=== PATIENT | female | born 1935 | race Caucasian/White ===

== ENCOUNTER → 2018-10-12 | Outpatient (CLI) | payer MEDICARE, BC ==
[~2018-10-12] MED LIST: ASPIRIN81 MG PO; HUSBAND TO BRING; IMDUR30 MG PO; LISINOPRIL5 MG PO; OMEPRAZOLE40 MG PO; PLAVIX75 MG PO; SIMVASTATIN20 MG PO; SUCRALFATE1 GM PO; ZEBETA10 M1 PO
--- NOTE | 2018-10-12 12:22 | Diagnostic Imaging Report ---
TECHNIQUE: Magnetic resonance imaging of the LEFT KNEE was performed WITHOUT injected contrast. HISTORY: Left knee pain COMPARISON: None available. FINDINGS: LIGAMENTS AND TENDONS: ACL: Intact PCL: Intact Collateral ligaments: Intact Iliotibial band: Unremarkable Popliteal tendon: Intact Extensor mechanism: Intact JOINT: Menisci: Medial: Horizontal tear involving the body and posterior horn. Flipped meniscal tissue into the meniscotibial recess. Lateral: Complex degenerative signal of the anterior horn with adjacent ganglion. Articular Cartilage: Medial Compartment: Partial-thickness cartilage loss Lateral Compartment: Partial-thickness cartilage loss Patellofemoral Compartment: Partial-thickness cartilage loss Joint Fluid: Moderate joint effusion. Hoffman's cyst. BONE: No focal or infiltrative bone marrow replacing abnormality. No acute fracture. SOFT TISSUES: Otherwise, unremarkable. IMPRESSION: Medial meniscus horizontal tear with small flipped fragment into the meniscotibial recess. Joint effusion and Hoffman's cyst. Signed by: Dr. Joe Barrow M.D. on 10/12/2018 12:18 PM
== END ==
LOC: MRI 10:32
PROVIDERS: ATTEND Specialist
DX: S83.242A Other tear of medial meniscus, current injury, left knee, initial encounter (principal)

== ENCOUNTER 2020-10-02 05:05 | Inpatient (IN) | payer MEDICARE, BC ==
[~2020-10-02] VITALS: Ht 157.5 cm; Wt 52.6 kg
[2020-10-02] MEDS ORDERED: DILTIAZEM HCL 5 MG/ML 5 ML VIAL IV STA (05:13)
[2020-10-02] MEDS ORDERED: LACTATED RINGER'S 500 ML IV ONE (05:15)
[2020-10-02 05:34] LABS: BASOPHILS # (AUTO) 0.1 (0.0-0.1); BASOPHILS % 0.9 % (0.0-1.0); EOSINOPHILS # (AUTO) 0.2 (0.0-0.4); HEMATOCRIT 39.7 % (34.2-44.1); HEMOGLOBIN 12.6 g/dL (12.0-16.0); LYMPHOCYTES # (AUTO) 3.3 (1.0-3.2); LYMPHOCYTES % 40.6 % (18.0-39.1); MEAN CORPUSCULAR HEMOGLOBIN 29.2 pg (28-32); MEAN CORPUSCULAR HGB CONC 31.7 g/dL (31-35); MEAN CORPUSCULAR VOLUME 91.9 fL (81-99); MONOCYTES # (AUTO) 0.8 (0.2-0.8); MONOCYTES % 9.9 % (4.4-11.3); NEUTROPHILS # (AUTO) 3.8 (2.1-6.9); NEUTROPHILS % 46.2 % (38.7-80.0); PLATELET COUNT 244 x10e3/uL (140-360); RED BLOOD COUNT 4.32 x10e6/uL (3.6-5.1); RED CELL DISTRIBUTION WIDTH 13.2 % (11.7-14.4)
[2020-10-02] MEDS ORDERED: LACTATED RINGER'S 1,000 ML ONE (05:39)
[2020-10-02 05:43] LABS: INR 0.96; PROTHROMBIN TIME 13.3 seconds (11.9-14.5)
[2020-10-02 05:51] LABS: ALBUMIN 4.1 g/dL (3.5-5.0); ALBUMIN/GLOBULIN RATIO 1.3 (0.8-2.0); ANION GAP 12.9 mmol/L (8-16); CREATININE, SERUM 1.19 mg/dL (0.57-1.11); POTASSIUM 3.9 mmol/L (3.5-5.1)
[2020-10-02 05:59] LABS: CREATINE KINASE MB 1.6 ng/mL (0-5.0)
[2020-10-02 07:58] VITALS: BP 176/65
[2020-10-02 08:24] VITALS: BP 176/65
[2020-10-02] MEDS: ASPIRIN 81 MG CHEW TAB PO SCH (10:55)
[2020-10-02] MEDS: LISINOPRIL 2.5 MG TAB PO SCH (10:56)
[2020-10-02] MEDS: CLOPIDOGREL BISULFATE 75 MG TAB PO SCH (10:56)
[2020-10-02] MEDS: BISOPROLOL FUMARATE 10 MG TAB PO SCH (11:02)
[2020-10-02 12:17] VITALS: BP 170/69
[2020-10-02] MEDS ORDERED: ISOSORBIDE MONO30 MG PO (14:27)
[2020-10-02 16:12] VITALS: BP 171/60
[2020-10-02 20:00] VITALS: BP 151/64
[2020-10-02 21:00] VITALS: BP 151/64
[2020-10-02] MEDS ORDERED: SIMVASTATIN 20 MG TAB PO SCH (21:00)
[2020-10-03] VITALS: BP 167/65
[2020-10-03 04:00] VITALS: BP 136/61
[2020-10-03 06:35] LABS: BASOPHILS # (AUTO) 0.1 (0.0-0.1); BASOPHILS % 0.7 % (0.0-1.0); EOSINOPHILS # (AUTO) 0.1 (0.0-0.4); EOSINOPHILS % 1.7 % (0.0-6.0); HEMATOCRIT 36.4 % (34.2-44.1); HEMOGLOBIN 11.4 g/dL (12.0-16.0); LYMPHOCYTES # (AUTO) 2.3 (1.0-3.2); MEAN CORPUSCULAR HEMOGLOBIN 28.5 pg (28-32); MEAN CORPUSCULAR HGB CONC 31.3 g/dL (31-35); MONOCYTES # (AUTO) 0.8 (0.2-0.8); NEUTROPHILS # (AUTO) 4.3 (2.1-6.9); NEUTROPHILS % 57.1 % (38.7-80.0); PLATELET COUNT 217 x10e3/uL (140-360); RED CELL DISTRIBUTION WIDTH 13.2 % (11.7-14.4)
[2020-10-03 06:41] LABS: ALBUMIN 3.5 g/dL (3.5-5.0); ALBUMIN/GLOBULIN RATIO 1.3 (0.8-2.0); ANION GAP 13.6 mmol/L (8-16); CALCIUM 9.5 mg/dL (8.4-10.2); CHOL/HDL RATIO 3.5 (3.0-3.6); CREATININE, SERUM 1.05 mg/dL (0.57-1.11); POTASSIUM 3.6 mmol/L (3.5-5.1)
[2020-10-03 08:16] VITALS: BP 152/63
[2020-10-03 08:21] VITALS: BP 152/63
[2020-10-03] MEDS: ASPIRIN 81 MG CHEW TAB PO SCH (08:47)
[2020-10-03] MEDS: CLOPIDOGREL BISULFATE 75 MG TAB PO SCH (08:48)
[2020-10-03] MEDS: LISINOPRIL 2.5 MG TAB PO SCH (08:48)
[2020-10-03] MEDS: BISOPROLOL FUMARATE 10 MG TAB PO SCH (08:49)
[2020-10-03] MEDS ORDERED: ISOSORBIDE MONONITRATE 30 MG TAB CR PO SCH (09:00)
[2020-10-03 12:07] VITALS: BP 131/59
[2020-10-03] MEDS ORDERED: NITROSTAT0.4 MG SL (12:09)
== END 2020-10-03 12:40 | disposition home or self-care (01) | DRG 313 ==
LOC: ER 05:13 → ERHOLD 07:09 → MED/SURG2 08:01
PROVIDERS: ADMIT Internal Medicine Cardiovascular Disease; ATTEND Internal Medicine Cardiovascular Disease
DX: R07.9 Chest pain, unspecified (principal); I25.10 Atherosclerotic heart disease of native coronary artery without angina pectoris; Z95.5 Presence of coronary angioplasty implant and graft; I10 Essential (primary) hypertension; E78.5 Hyperlipidemia, unspecified; I25.2 Old myocardial infarction; I48.91 Unspecified atrial fibrillation; Z20.828 Contact with and (suspected) exposure to other viral communicable diseases
CPT/HCPCS: 36415; 71045; 80053; 80061; 82550; 82553; 83735; 84443; 84484; 85025; 85610; 93005; 93306; 99284; J7120; J7121; U0002

== ENCOUNTER 2020-10-26 09:56 | Inpatient (IN) | payer MEDICARE, BC ==
[~2020-10-26] VITALS: Ht 157.5 cm; Wt 52.6 kg
[~2020-10-26 09:56] MED LIST changes: +ISOSORBIDE MONO30 MG PO; +NITROSTAT0.4 MG SL
[2020-10-26] MEDS ORDERED: ASPIRIN 81 MG CHEW TAB PO ONE ×2 (10:15→11:15)
[2020-10-26 10:32] LABS: BASOPHILS % 0.5 % (0.0-1.0); EOSINOPHILS % 0.1 % (0.0-6.0); HEMATOCRIT 37.2 % (34.2-44.1); HEMOGLOBIN 11.7 g/dL (12.0-16.0); MEAN CORPUSCULAR HEMOGLOBIN 29.1 pg (28-32); MEAN CORPUSCULAR HGB CONC 31.5 g/dL (31-35); MEAN CORPUSCULAR VOLUME 92.5 fL (81-99); MONOCYTES # (AUTO) 0.5 (0.2-0.8); MONOCYTES % 6.1 % (4.4-11.3); NEUTROPHILS # (AUTO) 6.1 (2.1-6.9); NEUTROPHILS % 79.7 % (38.7-80.0); PLATELET COUNT 225 x10e3/uL (140-360); RED BLOOD COUNT 4.02 x10e6/uL (3.6-5.1); RED CELL DISTRIBUTION WIDTH 13.5 % (11.7-14.4)
[2020-10-26] MEDS ORDERED: MORPHINE SULFATE INJ 2 MG/ML SYR ONE (10:34)
[2020-10-26] MEDS ORDERED: MORPHINE SULFATE INJ 2 MG/ML SYR IV STA (10:34)
[2020-10-26] MEDS ORDERED: ONDANSETRON HCL INJ 2MG/ML 2ML 2 MG/ML VIAL IV STA (10:34)
[2020-10-26] MEDS ORDERED: ONDANSETRON HCL INJ 2MG/ML 2ML 2 MG/ML VIAL ONE (10:35)
[2020-10-26] MEDS ORDERED: MORPHINE SULFATE INJ 2 MG/ML SYR IV ONE (10:45)
[2020-10-26 11:00] LABS: ALBUMIN 4.2 g/dL (3.5-5.0); ALBUMIN/GLOBULIN RATIO 1.3 (0.8-2.0); ANION GAP 17.4 mmol/L (8-16); CALCIUM 9.8 mg/dL (8.4-10.2); CREATININE, SERUM 1.33 mg/dL (0.57-1.11); POTASSIUM 4.4 mmol/L (3.5-5.1)
[2020-10-26] MEDS ORDERED: ONDANSETRON HCL INJ 2MG/ML 2ML 2 MG/ML VIAL IV ONE (11:00)
[2020-10-26 11:06] LABS: CREATINE KINASE MB 5.1 ng/mL (0-5.0)
[2020-10-26] MEDS ORDERED: MORPHINE SULFATE INJ 2 MG/ML SYR IV PRN (11:15)
[2020-10-26] MEDS ORDERED: ONDANSETRON HCL INJ 2MG/ML 2ML 2 MG/ML VIAL IV PRN (11:15)
[2020-10-26] MEDS: MORPHINE SULFATE INJ 4 MG/ML INJ 1ML IV PRN (13:52)
[2020-10-26] MEDS: ENOXAPARIN INJ 80 MG/0.8 ML SYR SC SCH ×2 (13:53→21:23)
[2020-10-26 15:15] VITALS: BP 127/68
[2020-10-26 15:16] VITALS: BP 127/68
[2020-10-26] MEDS ORDERED: ALPRAZOLAM 0.5 MG TAB PO PRN (16:00)
[2020-10-26] MEDS ORDERED: SODIUM CHLORIDE FLUSH 10 ML SYR INJ PRN (16:00)
[2020-10-26] MEDS: ASPIRIN 81 MG CHEW TAB PO SCH (16:00)
[2020-10-26] MEDS ORDERED: ACETAMINOPHEN 325 MG TAB PO PRN (16:15)
[2020-10-26] MEDS ORDERED: NITROGLYCERIN 2% OINT 1 GM PKT TOP SCH (16:15)
[2020-10-26] MEDS ORDERED: NITROGLYCERIN 0.4 MG SUBL SL PRN (16:15)
[2020-10-26] MEDS: LISINOPRIL 2.5 MG TAB PO SCH (16:30)
[2020-10-26] MEDS: METOPROLOL TARTRATE 25 MG TAB PO SCH (16:30)
[2020-10-26] MEDS: D5.45%NS/KCL 20MEQ 1,000 ML IV SCH (16:30)
[2020-10-26] MEDS: NITROGLYCERIN 2% OINT 1 GM PKT TOP SCH (19:00)
[2020-10-26 19:55] LABS: CREATINE KINASE MB 13.9 ng/mL (0-5.0)
[2020-10-26 20:25] VITALS: BP 125/75
[2020-10-26 20:34] VITALS: BP 113/67
[2020-10-26] MEDS ORDERED: ZOLPIDEM TARTRATE 5 MG TAB PO PRN (21:00)
[2020-10-27] VITALS (8 sets, daily range): BP systolic 103–128; BP diastolic 50–80
[2020-10-27] MEDS: NITROGLYCERIN 2% OINT 1 GM PKT TOP SCH ×4 (00:50→17:13)
[2020-10-27] MEDS: D5.45%NS/KCL 20MEQ 1,000 ML IV SCH (00:51)
[2020-10-27] MEDS: MORPHINE SULFATE INJ 4 MG/ML INJ 1ML IV PRN (01:33)
[2020-10-27] MEDS: METOPROLOL TARTRATE 25 MG TAB PO SCH ×2 (04:00→17:14)
[2020-10-27] MEDS ORDERED: FUROSEMIDE INJ 10 MG/ML 4 ML VIAL ONE (04:43)
[2020-10-27] MEDS ORDERED: FUROSEMIDE INJ 10 MG/ML 4 ML VIAL IV ONE (04:45)
[2020-10-27 06:36] LABS: INR 0.98; PROTHROMBIN TIME 13.5 seconds (11.9-14.5)
[2020-10-27 06:37] LABS: PARTIAL THROMBOPLASTIN TIME 27.9 seconds (23.8-35.5)
[2020-10-27 06:52] LABS: CREATINE KINASE MB 13.6 ng/mL (0-5.0)
[2020-10-27 07:08] LABS: ALBUMIN 3.4 g/dL (3.5-5.0); ANION GAP 14.4 mmol/L (8-16); CALCIUM 9.3 mg/dL (8.4-10.2); CREATININE, SERUM 1.13 mg/dL (0.57-1.11); POTASSIUM 4.4 mmol/L (3.5-5.1)
[2020-10-27 07:20] LABS: CHOL/HDL RATIO 3.2 (3.0-3.6)
[2020-10-27 08:17] LABS: BASOPHILS # (AUTO) 0.1 (0.0-0.1); BASOPHILS % 0.3 % (0.0-1.0); EOSINOPHILS # (AUTO) 0.1 (0.0-0.4); EOSINOPHILS % 0.6 % (0.0-6.0); HEMATOCRIT 41.4 % (34.2-44.1); LYMPHOCYTES % 5.7 % (18.0-39.1); MEAN CORPUSCULAR HGB CONC 31.4 g/dL (31-35); MEAN CORPUSCULAR VOLUME 92.4 fL (81-99); MONOCYTES # (AUTO) 1.8 (0.2-0.8); MONOCYTES % 9.9 % (4.4-11.3); NEUTROPHILS % 82.8 % (38.7-80.0); PLATELET COUNT 229 x10e3/uL (140-360); RED BLOOD COUNT 4.48 x10e6/uL (3.6-5.1); RED CELL DISTRIBUTION WIDTH 13.5 % (11.7-14.4)
[2020-10-27] MEDS: ASPIRIN 81 MG CHEW TAB PO SCH (09:00)
[2020-10-27] MEDS: ENOXAPARIN INJ 80 MG/0.8 ML SYR SC SCH ×2 (09:00→21:04)
[2020-10-27] MEDS: LISINOPRIL 2.5 MG TAB PO SCH (09:00)
[2020-10-27] MEDS ORDERED: MIDAZOLAM HCL 2 MG/2 ML VIAL ONE (09:34)
[2020-10-27] MEDS ORDERED: HEPARIN SOD (PORCINE) 1000 UNIT/ML 30ML ONE (09:34)
[2020-10-27] MEDS ORDERED: FENTANYL CITRATE/PF 100MCG/2 ML INJ ONE (09:35)
[2020-10-27] MEDS ORDERED: LIDOCAINE HCL 2% LOCAL 20 ML VIAL ONE (09:36)
[2020-10-27] MEDS ORDERED: IOPAMIDOL 370 MG/ML 200 ML INFUS..BTL INJ ONE (09:37)
[2020-10-27] MEDS ORDERED: HEPARIN SOD/SOD CHLORIDE 2,000 ML ONE (09:37)
[2020-10-27] MEDS ORDERED: SODIUM CHLORIDE 0.9% 1000ML 1,000 ML ONE (09:37)
[2020-10-27] MEDS ORDERED: NITROGLYCERIN/D5W 200 MCG/ML 0 ML ONE (09:38)
[2020-10-28 00:36] VITALS: BP 118/68
[2020-10-28] MEDS: METOPROLOL TARTRATE 25 MG TAB PO SCH (04:00)
[2020-10-28 05:06] VITALS: BP 122/78
[2020-10-28] MEDS: NITROGLYCERIN 2% OINT 1 GM PKT TOP SCH ×2 (06:20)
[2020-10-28 08:00] VITALS: BP 112/69
[2020-10-28 09:00] VITALS: BP 112/69
[2020-10-28] MEDS: LISINOPRIL 2.5 MG TAB PO SCH (09:34)
[2020-10-28] MEDS: ASPIRIN 81 MG CHEW TAB PO SCH (09:34)
[2020-10-28] MEDS: ENOXAPARIN INJ 80 MG/0.8 ML SYR SC SCH (09:34)
[2020-10-28] MEDS ORDERED: LOPRESSOR25 MG PO (10:17)
[2020-10-28] MEDS ORDERED: LISINOPRIL2.5 MG PO (10:17)
[2020-10-28] MEDS ORDERED: NITROSTAT0.4 MG SL (10:17)
[2020-10-28 11:34] VITALS: BP 118/64
== END 2020-10-28 12:17 | disposition home health service (06) | DRG 280 ==
LOC: ER 10:12 → ERHOLD 11:28 → MED/SURG3 14:32
PROVIDERS: ADMIT Internal Medicine Cardiovascular Disease; ATTEND Internal Medicine Cardiovascular Disease
PROC: 4A023N7 Measurement of Cardiac Sampling and Pressure, Left Heart, Percutaneous Approach (ICD-10-PCS; principal; 2020-10-27)
PROC: B2111ZZ Fluoroscopy of Multiple Coronary Arteries using Low Osmolar Contrast (ICD-10-PCS; 2020-10-27)
PROC: B2151ZZ Fluoroscopy of Left Heart using Low Osmolar Contrast (ICD-10-PCS; 2020-10-27)
DX: I21.4 Non-ST elevation (NSTEMI) myocardial infarction (principal); I50.43 Acute on chronic combined systolic (congestive) and diastolic (congestive) heart failure; I13.0 Hypertensive heart and chronic kidney disease with heart failure and stage 1 through stage 4 chronic kidney disease, or unspecified chronic kidney disease; I25.110 Atherosclerotic heart disease of native coronary artery with unstable angina pectoris; E78.5 Hyperlipidemia, unspecified; J98.4 Other disorders of lung; Z20.828 Contact with and (suspected) exposure to other viral communicable diseases; J44.9 Chronic obstructive pulmonary disease, unspecified; N18.9 Chronic kidney disease, unspecified
CPT/HCPCS: 36415; 71045; 80053; 80061; 82550; 82553; 83880; 84484; 85025; 85610; 85730; 93005; 93306; 93458; 99152; 99153; 99284; C1887; J1644; J1650; J1940; J2001; J2250; J2270; J2405; J3010; J7030; Q9967; U0002

== ENCOUNTER 2022-07-13 12:55 | Emergency (ER) | payer MEDICARE, BC ==
[~2022-07-13] VITALS: Ht 157.5 cm; Wt 52.6 kg
[~2022-07-13 12:55] MED LIST changes: +LISINOPRIL2.5 MG PO; +LOPRESSOR25 MG PO
[2022-07-13 13:41] LABS: BASOPHILS # (AUTO) 0.1 (0.0-0.1); BASOPHILS % 0.7 % (0.0-1.0); EOSINOPHILS # (AUTO) 0.1 (0.0-0.4); EOSINOPHILS % 0.8 % (0.0-6.0); HEMATOCRIT 37.7 % (34.2-44.1); HEMOGLOBIN 11.5 g/dL (12.0-16.0); LYMPHOCYTES % 27.3 % (18.0-39.1); MEAN CORPUSCULAR HEMOGLOBIN 28.2 pg (28-32); MEAN CORPUSCULAR HGB CONC 30.5 g/dL (31-35); MEAN CORPUSCULAR VOLUME 92.4 fL (81-99); MONOCYTES # (AUTO) 0.6 (0.2-0.8); MONOCYTES % 8.7 % (4.4-11.3); NEUTROPHILS # (AUTO) 4.4 (2.1-6.9); NEUTROPHILS % 62.1 % (38.7-80.0); PLATELET COUNT 225 x10e3/uL (140-360); RED BLOOD COUNT 4.08 x10e6/uL (3.6-5.1); RED CELL DISTRIBUTION WIDTH 14.1 % (11.7-14.4)
[2022-07-13 14:03] LABS: CLARITY,URINE CLEAR (CLEAR); COLOR,URINE YELLOW (YELLOW); KETONES,URINE NEGATIVE (NEGATIVE); LEUKOCYTE ESTERASE ,URINE NEGATIVE (NEGATIVE); NITRITE,URINE NEGATIVE (NEGATIVE); PROTEIN,URINE DIPSTICK NEGATIVE (NEGATIVE); URINE UROBILINOGEN 0.2 mg/dL (0.2 - 1)
[2022-07-13 14:08] LABS: ANION GAP 14.5 mmol/L (8-16); CALCIUM 9.5 mg/dL (8.4-10.2); CREATININE, SERUM 1.26 mg/dL (0.57-1.11); POTASSIUM 4.5 mmol/L (3.5-5.1)
[2022-07-13 14:34] LABS: EPITHELIAL CELLS,URINE MODERATE /LPF
[2022-07-13 14:40] LABS: BACTERIA,URINE RARE /HPF; RENAL EPITHELIAL CELLS,URINE FEW
[2022-07-13] MEDS ORDERED: PREDNISONE20 MG PO (15:06)
[2022-07-13] MEDS ORDERED: METHOCARBAMOL500 MG PO (15:08)
== END 2022-07-13 15:02 | disposition home or self-care (01) ==
LOC: ER 13:16
DX: M54.41 Lumbago with sciatica, right side (principal); I10 Essential (primary) hypertension; E78.5 Hyperlipidemia, unspecified; I48.91 Unspecified atrial fibrillation; I25.2 Old myocardial infarction
CPT/HCPCS: 36415; 72131; 80048; 81001; 85025; 99284